=== PATIENT | male | born 1955 | race Asian ===

== ENCOUNTER 2021-03-08 09:25 | Emergency (ER) | payer OTHER ==
[~2021-03-08] VITALS: Ht 165.1 cm; Wt 54.0 kg
[2021-03-08] MEDS ORDERED: IBUPROFEN 600MG TABLET PO STA (11:16)
[2021-03-08] MEDS ORDERED: HYDR-4001 MT (13:32)
[2021-03-08 15:59] VITALS: BP 190/113
[2021-03-08] MEDS ORDERED: CLONIDINE 0.1MG TABLET PO ONE (16:00)
== END 2021-03-08 16:02 | disposition home or self-care (01) ==
LOC: EDBD 09:25 → ER 09:25
DX: S82.032A Displaced transverse fracture of left patella, initial encounter for closed fracture (principal); S60.222A Contusion of left hand, initial encounter; E11.9 Type 2 diabetes mellitus without complications; I10 Essential (primary) hypertension; E78.00 Pure hypercholesterolemia, unspecified; W01.0XXA Fall on same level from slipping, tripping and stumbling without subsequent striking against object, initial encounter; Y93.89 Activity, other specified; Y92.524 Gas station as the place of occurrence of the external cause; Y99.8 Other external cause status
CPT/HCPCS: 29505; 73130; 73562; 99284; L1830